=== PATIENT | female | born 1960 | race Caucasian/White ===

== ENCOUNTER 2017-05-30 17:38 | Observation (INO) ==
[2017-05-30] MEDS ORDERED: Aspirin 81 MG TAB.CHEW PO ONE (18:05)
--- NOTE | 2017-05-30 18:15 | Emergency Department Note ---
Disposition Clinical Impression: Chest pain Qualifiers: Chest pain type: unspecified Qualified Code(s): R07.9 - Chest pain, unspecified Disposition: Admitted As Inpatient Condition: Fair Referrals: Juan Kaur Jr, MD [Primary Care Provider] - Forms: ED Satisfaction Letter Time of Disposition: 19:09 Chest Pain HPI - General Chief Complaint: ED Upper Respiratory Infection Stated Complaint: chest pain with cough Time Seen by Provider: 05/30/17 18:05 Source: patient Mode of arrival: ambulatory Limitations: no limitations Vital Signs Reviewed: Yes Nursing Notes Reviewed: Yes - History of Present Illness HPI Narrative: 57-year-old who states that she's been having chest pain off and on for the last couple weeks. States that she goes up steps that she becomes dyspneic and has chest discomfort. She also developed a cold over the last several days and has a cough that she says her pain increases with that also. She does note however that the chest discomfort exertional in nature started prior to her cold symptoms. Pt complaint: chest pain Onset (ago): week(s) (2) Duration: intermittent Onset: during exertion Pain Location: substernal, left chest Severity scale (1-10): 6 Quality: tightness, aching Improves with: nothing Worsens with: other (All the cough over the last couple days and seems to be worse with coughing also.) Context: recent illness Associated symptoms: Reports: cough Treatments prior to arrival chest pain: none - Related Data Allergies Allergy/AdvReac Type Severity Reaction Status Date / Time No Known Allergies Allergy Verified 05/30/17 18:03 All systems ED: reviewed and negative except as stated. Constitutional: Denies: fever, chills, weakness, weight change Eyes: Denies: eye pain, eye discharge, vision change ENT ED: Denies: ear pain, throat pain, dental pain, hearing loss, epistaxis, congestion, dysphagia Cardiovascular: Reports: chest pain. Denies: palpitations, dyspnea on exertion , edema, syncope Respiratory: Reports: cough. Denies: dyspnea, wheezes, hemoptysis, stridor Gastrointestinal: Denies: abdominal pain, nausea, vomiting, diarrhea, constipation, hematemesis, melena, hematochezia Genitourinary: Denies: dysuria, frequency, hematuria, discharge Musculoskeletal: Denies: back pain, neck pain, arthralgia, myalgia Integumentary: Denies: rash, abrasion, lesions Neurological: Denies: headache, weakness, numbness, paresthesias, confusion, abnormal gait, vertigo Psychiatric: Denies: anxiety, depression, suicidal thoughts, homicidal thoughts , auditory hallucinations, visual hallucinations Endocrine: Denies: fatigue Hematological/Lymphatic: Denies: easy bleeding, easy bruising Allergic/Immunologic: Denies: facial swelling, urticaria Chest Pain PMH - Past Medical History Medical history: Reports: other Psychiatric history: Reports: anxiety, depression - Social History Smoking Status: Never smoker Alcohol use: Reports: none Drug use: Reports: none Physical Exam - General Limitations: no limitations General appearance: alert, in no apparent distress - Head Head exam: atraumatic, normocephalic, normal inspection - Eye Eye exam: Present: normal appearance, PERRL, EOMI - ENT ENT exam: normal exam, normal oropharynx, mucous membranes moist - Neck Neck exam: Present: normal inspection, full ROM, trachea midline - Chest Chest inspection: Present: normal inspection, symmetric chest wall rise - Respiratory Respiratory exam: Present: normal lung sounds bilaterally - Cardiovascular Cardiovascular exam: Present: regular rate, normal rhythm, normal heart sounds - Abdominal Exam Abdominal exam: Present: soft, Non-Tender. Absent: tenderness, distention, guarding, rebound, rigidity - Extremities Exam Extremities exam: Present: normal inspection, full ROM. Absent: tenderness, pedal edema - Expanded Lower Extremity Exam Neurovascular/Tendon exam: Absent: motor deficit, sensory deficit, tendon deficit Gait: observed and normal - Back Exam Back exam: Present: normal inspection, full ROM. Absent: tenderness - Neurological Exam Neurological exam: Present: alert, oriented X3 - Psychiatric Psychiatric exam: Present: normal affect, normal mood - Skin Skin exam: Present: warm, dry, intact, normal color Course - Reevaluation(s) Reevaluation #1: 57-year-old whose had intermittent chest discomfort the last couple weeks. She also has developed a cough and congestion over the last couple of days but states the chest pain with exertional component began prior to her cough. She does have risk factors. Had no recent cardiac workup. Time: 19:08 - Consultations Consultation #1: Discussed with rea Morris. Time: 19:20 Vital Signs Temperature 98.6 F 05/30/17 17:56 Pulse Rate 91 05/30/17 17:56 Respiratory Rate 16 05/30/17 17:56 Blood Pressure 118/88 05/30/17 17:56 O2 Sat by Pulse Oximetry 99 05/30/17 17:56 Temperature 98.6 F 05/30/17 17:56 Pulse Rate 91 05/30/17 17:56 Respiratory Rate 16 05/30/17 17:56 Blood Pressure 118/88 05/30/17 17:56 O2 Sat by Pulse Oximetry 99 05/30/17 17:56 Oxygen Delivery Oxygen Delivery Room Air Chest Pain - Lab Data Lab results reviewed: Yes I reviewed the patient's lab results. Result diagrams: 05/30/17 18:14 05/30/17 18:14 Lab Results 05/30/17 05/30/17 05/30/17 Range/Units 18:14 18:14 18:14 WBC 6.4 (4.3-11.1) K/mcL RBC 4.48 (3.82-4.97) M/mcL Hgb 13.9 (11.5-15.4) g/dL Hct 41.3 (35.3-44.9) % MCV 92.2 (83.0-100.0) fL MCH 31.0 (28.0-33.3) pg MCHC 33.7 (31.6-35.5) g/dL RDW 13.2 (11.5-14.5) % Plt Count 248 (140-400) K/mcL MPV 10.3 (9.4-12.4) fL Immature Gran % 0.6 (0-4) % Seg Neutrophils % 28.9 % Lymphocytes % 58.6 % Monocytes % 10.1 % Eosinophils % 1.2 % Basophils % 0.6 % Neutrophils # 1.9 (1.6-8.9) K/mcL Lymphocytes # 3.8 (0.6-4.6) K/mcL Monocytes # 0.7 (0.0-1.3) K/mcL Eosinophils # 0.1 (0.0-0.6) K/mcL Basophils # 0.0 (0.0-0.2) K/mcL PT 10.8 (9.4-12.1) Seconds INR 1.0 APTT 30.0 (26.0-36.0) Seconds Sodium (136-145) mEq/L Potassium (3.5-4.5) mEq/L Chloride (98-109) mEq/L Carbon Dioxide (19-29) mEq/L BUN (7-20) mg/dL Creatinine (0.57-1.11) mg/dL Est GFR ( Amer) (> 60) Est GFR (Non-Af Amer) (> 60) BUN/Creatinine Ratio (6-26) Glucose (70-99) mg/dL Calculated Osmolality (280-300) Lactic Acid (0.5-2.2) mmol/L Calcium (8.6-10.8) mg/dL Troponin I (0-0.03) ng/mL B-Natriuretic Peptide < 10 (0-100) pg/mL 05/30/17 05/30/17 05/30/17 Range/Units 18:14 18:14 18:22 WBC (4.3-11.1) K/mcL RBC (3.82-4.97) M/mcL Hgb (11.5-15.4) g/dL Hct (35.3-44.9) % MCV (83.0-100.0) fL MCH (28.0-33.3) pg MCHC (31.6-35.5) g/dL RDW (11.5-14.5) % Plt Count (140-400) K/mcL MPV (9.4-12.4) fL Immature Gran % (0-4) % Seg Neutrophils % % Lymphocytes % % Monocytes % % Eosinophils % % Basophils % % Neutrophils # (1.6-8.9) K/mcL Lymphocytes # (0.6-4.6) K/mcL Monocytes # (0.0-1.3) K/mcL Eosinophils # (0.0-0.6) K/mcL Basophils # (0.0-0.2) K/mcL PT (9.4-12.1) Seconds INR APTT (26.0-36.0) Seconds Sodium 138 (136-145) mEq/L Potassium 4.3 (3.5-4.5) mEq/L Chloride 104 (98-109) mEq/L Carbon Dioxide 23 (19-29) mEq/L BUN 7 (7-20) mg/dL Creatinine 0.69 (0.57-1.11) mg/dL Est GFR ( Amer) > 60 (> 60) Est GFR (Non-Af Amer) > 60 (> 60) BUN/Creatinine Ratio 10 (6-26) Glucose 98 (70-99) mg/dL Calculated Osmolality 284 (280-300) Lactic Acid 2.1 (0.5-2.2) mmol/L Calcium 9.3 (8.6-10.8) mg/dL Troponin I 0.00 (0-0.03) ng/mL B-Natriuretic Peptide (0-100) pg/mL - Radiology Data Radiology results reviewed: Yes I reviewed the patient's radiology results. Chest X-Ray 05/30/17 18:07 IMPRESSION: No acute process. D/ / Pablito San MD / Pablito San MD Interpreting Provider: Pablito San MD - EKG Data EKG attestation: Yes I reviewed and interpreted this EKG. EKG shows normal: sinus rhythm Rate: normal Rhythm: NSR Interpretation: no acute changes Heart Score - Score History: Moderately Suspicious EKG: Normal Age: 45-65 Risk Factors: 1-2 risk factors Troponin: Less than normal limit HEART Score Total: 3
[2017-05-30 18:42] LABS: Basophils % 0.6 %; Eosinophils # 0.1 K/mcL (0.0-0.6); Eosinophils % 1.2 %; Hematocrit 41.3 % (35.3-44.9); Hemoglobin 13.9 g/dL (11.5-15.4); Immature Granulocytes % 0.6 % (0-4); Lymphocytes # 3.8 K/mcL (0.6-4.6); Lymphocytes % 58.6 %; Mean Corpuscular HGB Conc 33.7 g/dL (31.6-35.5); Mean Corpuscular Volume 92.2 fL (83.0-100.0); Mean Platelet Volume 10.3 fL (9.4-12.4); Monocytes # 0.7 K/mcL (0.0-1.3); Monocytes % 10.1 %; Neutrophils # 1.9 K/mcL (1.6-8.9); Platelet Count 248 K/mcL (140-400); Red Blood Count 4.48 M/mcL (3.82-4.97); Red Cell Distribution Width 13.2 % (11.5-14.5); Segmented Neutrophils % 28.9 %
[2017-05-30 18:51] LABS: Prothrombin Time 10.8 Seconds (9.4-12.1)
[2017-05-30 18:55] LABS: BUN/Creatinine Ratio 10 (6-26); Blood Urea Nitrogen 7 mg/dL (7-20); Calcium 9.3 mg/dL (8.6-10.8); Carbon Dioxide 23 mEq/L (19-29); Chloride 104 mEq/L (98-109); Glucose 98 mg/dL (70-99); Osmolality,Calculated 284 (280-300); Potassium 4.3 mEq/L (3.5-4.5); Sodium 138 mEq/L (136-145); eGFR For African Americans > 60 (> 60); eGFR For Non-African Americans > 60 (> 60)
[2017-05-30] MEDS ORDERED: Acetaminophen 325 MG TABLET PO PRN (20:02)
[2017-05-30] MEDS ORDERED: *HR* Morphine 2 MG/ML SYRINGE IVP PRN (20:02)
[2017-05-30] MEDS ORDERED: *HR* HYDROcodone/Acet 5/325 mg TABLET PO PRN (20:02)
[2017-05-30] MEDS ORDERED: Ondansetron 4 MG/2 ML VIAL IVP PRN (20:02)
[2017-05-30] MEDS ORDERED: Naloxone 0.4 MG/ML INJ IVP PRN (20:02)
[2017-05-30] MEDS ORDERED: Nitroglycerin 0.4 MG TAB.SUBL SL PRN (20:22)
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
[2017-05-30] MEDS ORDERED: Ipratropium/Albuterol Neb 3 ML IH PRN (20:49)
[2017-05-30] MEDS: GuaiFENesin/Dextromethorphan TABLET PO SCH (22:24)
[2017-05-30] MEDS: *HR* Heparin 5,000 UNIT/ML VIAL SQ SCH (22:24)
[2017-05-30] MEDS: Pantoprazole 40 MG VIAL IVP SCH (22:24)
[2017-05-30] MEDS ORDERED: clonazePAM 1 MG TABLET PO PRN (22:32)
[2017-05-30] MEDS: *HR* OxyCODONE/APAP 5/325 TABLET PO PRN (23:08)
[2017-05-31 00:23] LABS: Basophils % 0.5 %; Eosinophils # 0.1 K/mcL (0.0-0.6); Eosinophils % 1.6 %; Hematocrit 38.8 % (35.3-44.9); Hemoglobin 13.2 g/dL (11.5-15.4); Immature Granulocytes % 0.3 % (0-4); Lymphocytes # 3.9 K/mcL (0.6-4.6); Mean Corpuscular Hemoglobin 31.3 pg (28.0-33.3); Mean Corpuscular Volume 91.9 fL (83.0-100.0); Mean Platelet Volume 10.1 fL (9.4-12.4); Monocytes # 0.6 K/mcL (0.0-1.3); Monocytes % 9.2 %; Neutrophils # 1.8 K/mcL (1.6-8.9); Platelet Count 232 K/mcL (140-400); Red Blood Count 4.22 M/mcL (3.82-4.97); Red Cell Distribution Width 13.2 % (11.5-14.5); Segmented Neutrophils % 27.4 %
[2017-05-31 00:40] LABS: Alanine Aminotransferase 24 Units/L (0-55); Albumin 3.1 g/dL (3.5-5.0); Alkaline Phosphatase 60 Units/L (38-126); Aspartate Amino Transferase 18 Units/L (5-34); BUN/Creatinine Ratio 11 (6-26); Bilirubin,Total 0.2 mg/dL (0.2-1.2); Blood Urea Nitrogen 8 mg/dL (7-20); Carbon Dioxide 22 mEq/L (19-29); Chloride 103 mEq/L (98-109); Chol/HDL Ratio 5.5 (0-4.9); Cholesterol 169 mg/dL (< 200); Globulin 3.2 g/dL (2.4-3.5); Glucose 209 mg/dL (70-99); HDL Cholesterol 31 mg/dL (40-59); LDL Cholesterol,Calculated 93 mg/dL (0-99); Magnesium 1.8 mg/dL (1.6-2.6); Osmolality,Calculated 288 (280-300); Potassium 3.7 mEq/L (3.5-4.5); Sodium 137 mEq/L (136-145); Total Protein 6.3 g/dL (6.0-8.3); Triglycerides 225 mg/dL (< 150); eGFR For African Americans > 60 (> 60); eGFR For Non-African Americans > 60 (> 60)
[2017-05-31 01:09] LABS: Adenovirus Not Detected (Not Detect); Coronavirus 229E Not Detected (Not Detect); Coronavirus HKU1 Not Detected (Not Detect); Coronavirus NL63 Not Detected (Not Detect); Coronavirus OC43 Not Detected (Not Detect); Human Metapneumovirus Not Detected (Not Detect); Human Rhinovirus/Enterovirus Not Detected (Not Detect); Influenza A Subtype 2009 H1 Not Detected (Not Detect); Influenza A Untypeable Not Detected (Not Detect); Influenza B Not Detected (Not Detect)
[2017-05-31 01:10] LABS: Bordetella Pertussis Not Detected (Not Detect); Chlamydophila pneumoniae Not Detected (Not Detect); Mycoplasma pneumoniae Not Detected (Not Detect); Parainfluenza Virus 1 Not Detected (Not Detect); Parainfluenza Virus 2 Not Detected (Not Detect); Parainfluenza Virus 3 Not Detected (Not Detect); Parainfluenza Virus 4 Not Detected (Not Detect); Respiratory Syncytial Virus Not Detected (Not Detect)
[2017-05-31] MEDS: *HR* Heparin 5,000 UNIT/ML VIAL SQ SCH (05:31)
[2017-05-31] MEDS: Pantoprazole 40 MG VIAL IVP SCH (05:31)
[2017-05-31] MEDS: *HR* OxyCODONE/APAP 5/325 TABLET PO PRN (05:35)
[2017-05-31] MEDS ORDERED: Regadenoson 0.4 MG/5 ML SYRINGE IVP ONE (06:41)
[2017-05-31] MEDS ORDERED: clonazePAM 1 MG TABLET PO SCH (09:00)
[2017-05-31] MEDS ORDERED: Aspirin Enteric Coated 81 MG Tablet PO SCH (09:00)
[2017-05-31] MEDS: GuaiFENesin/Dextromethorphan TABLET PO SCH (09:33)
--- NOTE | 2017-05-31 14:48 | Discharge Summary ---
Date of Encounter: 05/31/17 Time of Encounter: 14:44 - Discharge Diagnosis (1) Chest pain Priority: Primary Status: Acute Comments: presented with intermittent CP and SOB. ASA given on arrival. No known CAD. Serial troponin is negative, EKG without acute ST changes. TTE with EF 65% mild diastolic dysfunction no wall motion abnormalities. D-dimer normal, low probability for pulmonary embolism. Suspect secondary to anxiety, musculoskeletal etiology (chest pain reproducible with movement) or GI source ( history of hiatal hernia). No further cardiac workup indicated at this time. Recommend follow-up with PCP and GI within 2 weeks. Qualifiers: Chest pain type: other chest pain Qualified Code(s): R07.89 - Other chest pain; R07.8 - Other chest pain (2) Anxiety and depression Priority: Primary Status: Chronic Comments: per hx. suspect anxiety possibly contributing to chest pain and shortness of breath. Continue home medications. Recommend follow-up with PCP within 1-2 weeks (3) Hiatal hernia Priority: Primary Status: Chronic Comments: per patient report his history. No recent EGD and does not follow with GI. This certainly could be contributing to chest pain as well. Recommend outpatient follow-up with GI. - Discharge Medications Home Medications: DULoxetine [Cymbalta] 60 mg PO BID 05/30/17 [History] Omeprazole [PriLOSEC] 20 mg PO DAILY 05/30/17 [History] OxyCODONE/APAP 5/325 [Percocet 5/325 MG] 1 each PO Q6HR PRN 05/30/17 [History] Propranolol [Inderal] 20 mg PO BID 05/30/17 [History] Quetiapine Fumarate [Seroquel] 200 mg PO HS 05/30/17 [History] clonazePAM [Clonazepam] 1 mg PO BID 05/30/17 [History] Benztropine [Cogentin] 1 mg PO BID 05/31/17 [History] Divalproex (24 HR) [Depakote ER (24 HR)] 1,500 mg PO HS 05/31/17 [History] Allergies/Adverse Reactions: 3 Allergy/AdvReac Type Severity Reaction Status Date / Time No Known Allergies Allergy Verified 05/30/17 18:03 Procedures/tests Complete & Pending: Procedures Performed prior 72 hours Category Date Time Status NM cecil perf SPECT multi [NM] Routine Exams 05/30/17 20:20 Taken EV echocardiogram Routine Y 05/31/17 12:30 Completed SP pharm nuclear stress Routine Y 05/31/17 10:00 Completed Date of admission: 05/30/17 19:36 Primary care physician: Juan Kaur Jr, MD Consults: 05/30/17 20:05 Consult to Occupational Therapy [CONS] Routine Comment: Evaluate, develop and implement POC Reason for Consult: Pt. reports dizziness w/ambulation sometimes. Please assess for strength, stability, safety, ambulation, and possible assistive needs for post-discharge planning. Consult to Program Engagement Director [CONS] Routine Reason for SW Consult: Please assess patient for possible home needs for post -discharge planning. 05/30/17 20:06 Consult to Physical Therapy [CONS] Routine Comment: Evaluate, develop and implement POC Reason for Consult: Pt. reports dizziness w/ambulation sometimes. Please assess for strength, stability, safety, ambulation, and possible assistive needs for post-discharge planning. Discharging clinician: Jud Mendoza Anticipated date of discharge: 05/31/17 - Patient Status Disposition: Home, Self-Care Condition: Good Functional capacity at discharge: independent ambulation Overall status at discharge: patient is back to baseline - Discharge Instructions Instructions: Chest Pain (DC), Dyspnea (GEN) Follow Up With: [facility] [Provider Group] (We have web requested you an appointment with GI ) Juan Kaur Jr, MD [Primary Care Provider] - 06/09/17 2:00 pm - Diet and Activity Activity: increase activity as tolerated, resume usual activities as tolerated Diet: advance to your usual diet Interval History: Seen and examined at bedside. Patient is due to me, information obtained from chart review and patient report. No chest pain on my exam, no shortness of breath. Patient reports chest pain occurs at rest and with movement. Philippe of breath is intermittent as well. Says she feels better woodlike to go home if testing is negative. Hospital course: Ms. Caraballo is a 57 year old female - Time Spent with Patient Total time spent providing and/or coordinating discharge services: - Constitutional Vitals: Temp Pulse Resp BP Pulse Ox 98.7 F 77 17 110/74 96 05/31/17 11:28 05/31/17 11:28 05/31/17 11:28 05/31/17 11:28 05/31/17 11:28 General appearance: Present: cooperative, A&O X 3, pleasant, no acute distress, obese, answers questions appropriately - Head Head exam: Present: atraumatic, normocephalic - Eye Eye exam: Present: PERRL, conjuntiva pink, sclera anicteric Pupils: Present: PERRL - Neck Neck exam general surgery: Present: supple, trachea midline. Absent: lymphadenopathy - Respiratory Respiratory exam: Present: CTAB. Absent: accessory muscle use, rales, rhonchi, wheezes - Cardiovascular Cardiovascular exam: Present: RRR, +S1, +S2. Absent: diastolic murmur, gallop, rubs, systolic murmur - GI/Abdominal GI/Abdominal exam: Present: normal bowel sounds, soft, no peritoneal signs. Absent: distended, tenderness - Extremities Exam Extremities exam: Present: warm, radial pulses palpable and symmetrical. Absent : calf tenderness, cyanotic, pedal edema - Neurological Exam Neurological exam: Present: CN II-XII intact, oriented X3, no focal deficits. Absent: pronater drift, facial droop, speech deficit - Skin Skin exam: Present: dry, intact
[2017-05-31 15:33] VITALS: BP 99/58
--- NOTE | 2017-06-01 10:41 | Electrocardiograph Report ---
[place] [id number] Test Date: 2017-05-30 Pat Name: Jyoti Caraballo Department: [id number] Room: 3B45 Gender: F Onion Tier: [place] : 1960 Requested By: Jovanni Wong Order Number: [id number] Reading MD: Pablito Martines DO Measurements Intervals [place] Rate: 77 P: 38 ND: 144 QRS: 34 QRSD: 81 T: 39 QT: 370 QTc: 402 Interpretive Statements SINUS RHYTHM Electronically Signed On 06-01-2017 10:40:16 EST by Pablito Martines DO
== END 2017-05-31 16:08 | disposition home or self-care (01) ==
LOC: 3BNU 17:38 → EMEROO 17:38 → 3BNU 20:31
PROVIDERS: ADMIT Internal Medicine Hematology & Oncology; ATTEND Registered Nurse